=== PATIENT | male | born 1995 | race Hispanic/Latino ===

== ENCOUNTER 2016-05-15 00:42 | Emergency (ER) | payer OTHER ==
--- NOTE | 2016-05-15 02:42 | EDDOCDS ---
Physician Documentation [facility] Name: Augusto Marino Age: 20 yrs Sex: Male : 1995 Arrival Date: 05/15/2016 Time: 00:42 Bed 2 Private MD: Disposition: 05/15/16 01:54 Discharged to Home/Self Care. Impression: Alcohol abuse with intoxication. - Condition is Stable. - Medication Reconciliation, Local Pharmacy Hours form. - Follow up: Private Physician; When: Call to arrange an appointment; Reason: Recheck today's complaints. - Problem is new. - Symptoms have improved. Historical: - Allergies: no known allergies; - Home Meds: 1. Truvada Unknown oral Unknown once daily (Last dose: 05/14/2016) - PMHx: none; - PSHx: none; - Social history: Smoking status: Patient uses tobacco products, current some day smoker. No barriers to communication noted, The patient speaks fluent British. - Family history: Not pertinent. - : The pt / caregiver states he / she is not on anticoagulants. Home medication list is obtained from the patient, Unable to Verify Home Med List with the patient / caregiver. - Exposure Risk Screening:: None identified. Vital Signs: 05/15 00:48 BP 123 / 60; Pulse 59; Resp 18; Temp 96.9(TE); Pulse Ox 100% on R/A; Weight 81.65 kg / jose manuel 180.01 lbs (R); Height 5 ft. 7 in. (170.18 cm) (R); Pain 0/10; 01:00 BP 106 / 55 (auto/); ko2 02:41 BP 141 / 65; Pulse 93; Resp 18; Temp 96.4; Pulse Ox 100% ; Pain 0/10; ko2 00:48 Body Mass Index 28.19 (81.65 kg, 170.18 cm) jose manuel MDM: 00:56 Accucheck ordered. cs11 01:13 Fingerstick Blood Sugar Ordered. EDMS 02:26 Financial registration complete. pm4 02:26 [facility] Payment Agreement was scanned into [employer] and attached to record. pm4 Point of Care Testing: Blood Glucose: 01:07 Blood Glucose: 83 mg/dL; ko2 Ranges: Signatures: Dispatcher [employer] EDEusebia Hammond RN RN jan Schiff, Craig, DO cs11 Lyudmila Pratt RN RN ko2 Evangelist Diamond, Reg Reg pm4 The chart was reviewed and I authenticate all verbal orders and agree with the evaluation and treatment provided.Attachments: : [facility] Payment Agreement pm4 MTDD
--- NOTE | 2016-05-15 02:42 | EDDOCDS ---
Nurse's Notes [facility] Name: Augusto Marino Age: 20 yrs Sex: Male : 1995 Arrival Date: 05/15/2016 Time: 00:42 Bed 2 Private MD: Diagnosis: Alcohol abuse with intoxication Presentation: 05/15 00:55 Presenting complaint: EMS states: they were called to residence for intoxicated person. alla pt admits to drinking bee and liquor since 6pm. per friend at bedside they became concerned when patient could not stay awake and was vomiting. friend states patient was not able to come down stairs unassisted and slid down the stairs. per EMS FSBS 106 and was given Zofran 4mg IV. Mental Health Triage Level: Not applicable. Adult Sepsis Screening: The patient does not have new or worsening altered mentation. Patient's respiratory rate is less than 22. Systolic blood pressure is greater than 100. Patient has a qSOFA score of 0- Negative Sepsis Screen. Suicide/Homicide risk assessment- the patient denies having any suicidal and/or homicidal ideations and does not present with any other emotional, behavioral or mental health complaints. Status: The patient is an active duty service plumber. Transition of care: patient was not received from another setting of care. 00:55 Acuity: STEVEN Level 3 apr 00:55 Method Of Arrival: Ambulance apr Triage Assessment: 01:06 General: Appears in no apparent distress, Behavior is cooperative, Smells of alcohol. apr Pain: Denies pain. HIV screening NA for this visit Offered previously. Historical: - Allergies: no known allergies; - Home Meds: 1. Truvada Unknown oral Unknown once daily (Last dose: 05/14/2016) - PMHx: none; - PSHx: none; - Social history: Smoking status: Patient uses tobacco products, current some day smoker. No barriers to communication noted, The patient speaks fluent Japanese. - Family history: Not pertinent. - : The pt / caregiver states he / she is not on anticoagulants. Home medication list is obtained from the patient, Unable to Verify Home Med List with the patient / caregiver. - Exposure Risk Screening:: None identified. Screenin:07 Screening information is obtained from the patient. Fall risk: No risks identified. ko2 Assistance ADL's: requires no assistance with activities of daily living. Abuse/DV Screen: The patient / caregiver reports he/she is: not in a situation that causes fear, pain or injury. Nutritional screening: No deficits noted. Advance Directives: Currently, there is no health care proxy. There is no active DNR order. There is no living will. There is no Power of Piano Professor. home support is adequate. Assessment: 01:07 General: Appears in no apparent distress, comfortable, Behavior is cooperative. Pain: ko2 Denies pain. Neurological: Level of Consciousness is awake, alert. Respiratory: No deficits noted. Derm: Skin is normal. 02:38 General: Pt ambulated in hallway with no concerns. Pt awake, alert and oriented. . ko2 Vital Signs: 00:48 BP 123 / 60; Pulse 59; Resp 18; Temp 96.9(TE); Pulse Ox 100% on R/A; Weight 81.65 kg jose manuel (R); Height 5 ft. 7 in. (170.18 cm) (R); Pain 0/10; 01:00 BP 106 / 55 (auto/); ko2 02:41 BP 141 / 65; Pulse 93; Resp 18; Temp 96.4; Pulse Ox 100% ; Pain 0/10; ko2 00:48 Body Mass Index 28.19 (81.65 kg, 170.18 cm) jose manuel Vitals: 01:06 Log In Time N/A - ambulance arrival. apr ED Course: 00:43 Patient visited by Katelyn Watson, Broadcast Producer. ml3 00:43 Lyudmila Pratt,SEBASTIÁN is Primary Nurse. ml3 00:43 Patient moved to Waiting ml3 00:43 Patient moved to 2 ml3 00:48 Pt greeted and oriented to ED. Patient advised of names of staff involved in care, jose manuel location of call laboy, wait times and NPO status. Accompanied by Friend, Patient has correct armband on for positive identification. Placed in gown. Bed in low position. Call light in reach. Side rails up X2. Pulse ox on. NIBP on. 00:49 Patient visited by Joanna Quevedo PCA. jose manuel 00:56 Erik Flood DO is Attending Physician. cs11 00:56 Patient visited by Erik Flood DO. cs11 01:02 Triage Initiated apr 01:48 Patient visited by Lyudmila Pratt,SEBASTIÁN. ko2 02:26 [facility] Payment Agreement was scanned into [employer] and attached to record. pm4 02:28 Patient name changed from Augusto\S\\S\Ned\S\ to Augusto\S\ \S\Ned. EDMS 02:39 The patient / caregiver is instructed regarding the plan of care and ED course. ko2 02:39 No IV's were initiated during this patient's visit. No procedures done that require ko2 assistance. Point of Care Testing: Blood Glucose: 01:07 Blood Glucose: 83 mg/dL; ko2 Ranges: Order Results: Lab Order: Fingerstick Blood Sugar; SPEC'M 05/15/16 01:06 Test: BEDSIDE GLUCOSE; Value: 83; Range: 70-105; Units: MG/DL; Status: F Outcome: 01:54 Discharge ordered by Provider. cs11 02:40 Discharge Assessment: Patient awake, alert and oriented x 3. No cognitive and/or ko2 functional deficits noted. Patient verbalized understanding of disposition instructions. patient administered narcotics - no. The following High Risk Discharge criteria are identified: None. Discharged to home ambulatory, Pt discharged to SGT Edi and Warrant Officer Soto Neumann. Condition: stable. No special radiology studies were completed. Property sent home with patient. 02:42 Patient left the ED. ko2 Signatures: Dispatcher [employer] EDMS Eusebia Davis RN Katelyn Avila, Broadcast Producer Unit ml3 Joanna Quevedo, VENEREAL DISEASE CONTROL HEAD VENEREAL DISEASE CONTROL HEAD Erik Conde, DO DO cs11 Lyudmila Pratt,SEBASTIÁN RN quan2 Evangelist Diamond, Reg Reg pm4 MTDD
--- NOTE | 2016-05-17 03:43 | EDDOCDS ---
Physician Documentation [facility] Name: Augusto Marino Age: 20 yrs Sex: Male : 1995 Arrival Date: 05/15/2016 Time: 00:42 Bed 2 Private MD: Disposition: 05/15/16 01:54 Discharged to Home/Self Care. Impression: Alcohol abuse with intoxication. - Condition is Stable. - Medication Reconciliation, Local Pharmacy Hours form. - Follow up: Private Physician; When: Call to arrange an appointment; Reason: Recheck today's complaints. - Problem is new. - Symptoms have improved. Historical: - Allergies: no known allergies; - Home Meds: 1. Truvada Unknown oral Unknown once daily (Last dose: 05/14/2016) - PMHx: none; - PSHx: none; - Social history: Smoking status: Patient uses tobacco products, current some day smoker. No barriers to communication noted, The patient speaks fluent Jamaican. - Family history: Not pertinent. - : The pt / caregiver states he / she is not on anticoagulants. Home medication list is obtained from the patient, Unable to Verify Home Med List with the patient / caregiver. - Exposure Risk Screening:: None identified. Vital Signs: 05/15 00:48 BP 123 / 60; Pulse 59; Resp 18; Temp 96.9(TE); Pulse Ox 100% on R/A; Weight 81.65 kg / jose manuel 180.01 lbs (R); Height 5 ft. 7 in. (170.18 cm) (R); Pain 0/10; 01:00 BP 106 / 55 (auto/); ko2 02:41 BP 141 / 65; Pulse 93; Resp 18; Temp 96.4; Pulse Ox 100% ; Pain 0/10; ko2 00:48 Body Mass Index 28.19 (81.65 kg, 170.18 cm) jose manuel MDM: 00:56 Accucheck ordered. cs11 01:13 Fingerstick Blood Sugar Ordered. EDMS 02:26 Financial registration complete. pm4 02:26 [facility] Payment Agreement was scanned into [employer] and attached to record. pm4 14:28 T-Sheet-- Draft Copy was scanned into [employer] and attached to record. Point of Care Testing: Blood Glucose: 01:07 Blood Glucose: 83 mg/dL; ko2 Ranges: Signatures: Dispatcher [employer] EDEusebia Hammond, RN RN Orquidea Arrieta, Reg Reg gb Erik Flood DO DO cs11 Lyudmila Pratt RN RN ko2 Evangelist Diamond, Reg Reg pm4 The chart was reviewed and I authenticate all verbal orders and agree with the evaluation and treatment provided.Attachments: 02:26 [facility] Payment Agreement pm4 14:28 T-Sheet-- Draft Copy gb Chart Complete MTDD
--- NOTE | 2016-05-17 03:43 | EDDOCDS ---
Nurse's Notes [facility] Name: Augusto Marino Age: 20 yrs Sex: Male : 1995 Arrival Date: 05/15/2016 Time: 00:42 Bed 2 Private MD: Diagnosis: Alcohol abuse with intoxication Presentation: 05/15 00:55 Presenting complaint: EMS states: they were called to residence for intoxicated person. alla pt admits to drinking bee and liquor since 6pm. per friend at bedside they became concerned when patient could not stay awake and was vomiting. friend states patient was not able to come down stairs unassisted and slid down the stairs. per EMS FSBS 106 and was given Zofran 4mg IV. Mental Health Triage Level: Not applicable. Adult Sepsis Screening: The patient does not have new or worsening altered mentation. Patient's respiratory rate is less than 22. Systolic blood pressure is greater than 100. Patient has a qSOFA score of 0- Negative Sepsis Screen. Suicide/Homicide risk assessment- the patient denies having any suicidal and/or homicidal ideations and does not present with any other emotional, behavioral or mental health complaints. Status: The patient is an active duty service department manager. Transition of care: patient was not received from another setting of care. 00:55 Acuity: STEVEN Level 3 apr 00:55 Method Of Arrival: Ambulance apr Triage Assessment: 01:06 General: Appears in no apparent distress, Behavior is cooperative, Smells of alcohol. apr Pain: Denies pain. HIV screening NA for this visit Offered previously. Historical: - Allergies: no known allergies; - Home Meds: 1. Truvada Unknown oral Unknown once daily (Last dose: 05/14/2016) - PMHx: none; - PSHx: none; - Social history: Smoking status: Patient uses tobacco products, current some day smoker. No barriers to communication noted, The patient speaks fluent Tamazight. - Family history: Not pertinent. - : The pt / caregiver states he / she is not on anticoagulants. Home medication list is obtained from the patient, Unable to Verify Home Med List with the patient / caregiver. - Exposure Risk Screening:: None identified. Screenin:07 Screening information is obtained from the patient. Fall risk: No risks identified. ko2 Assistance ADL's: requires no assistance with activities of daily living. Abuse/DV Screen: The patient / caregiver reports he/she is: not in a situation that causes fear, pain or injury. Nutritional screening: No deficits noted. Advance Directives: Currently, there is no health care proxy. There is no active DNR order. There is no living will. There is no Power of Dev Technical Mgr. home support is adequate. Assessment: 01:07 General: Appears in no apparent distress, comfortable, Behavior is cooperative. Pain: ko2 Denies pain. Neurological: Level of Consciousness is awake, alert. Respiratory: No deficits noted. Derm: Skin is normal. 02:38 General: Pt ambulated in hallway with no concerns. Pt awake, alert and oriented. . ko2 Vital Signs: 00:48 BP 123 / 60; Pulse 59; Resp 18; Temp 96.9(TE); Pulse Ox 100% on R/A; Weight 81.65 kg jose manuel (R); Height 5 ft. 7 in. (170.18 cm) (R); Pain 0/10; 01:00 BP 106 / 55 (auto/); ko2 02:41 BP 141 / 65; Pulse 93; Resp 18; Temp 96.4; Pulse Ox 100% ; Pain 0/10; ko2 00:48 Body Mass Index 28.19 (81.65 kg, 170.18 cm) jose manuel Vitals: 01:06 Log In Time N/A - ambulance arrival. apr ED Course: 00:43 Patient visited by Katelyn Watson, Locomotive Crane Engineer. ml3 00:43 Lyudmila Pratt,SEBASTIÁN is Primary Nurse. ml3 00:43 Patient moved to Waiting ml3 00:43 Patient moved to 2 ml3 00:48 Pt greeted and oriented to ED. Patient advised of names of staff involved in care, jose manuel location of call laboy, wait times and NPO status. Accompanied by Friend, Patient has correct armband on for positive identification. Placed in gown. Bed in low position. Call light in reach. Side rails up X2. Pulse ox on. NIBP on. 00:49 Patient visited by Joanna Quevedo PCA. jose manuel 00:56 Erik Flood DO is Attending Physician. cs11 00:56 Patient visited by Erik Flood DO. cs11 01:02 Triage Initiated apr 01:48 Patient visited by Lyudmila Pratt RN. ko2 02:26 [facility] Payment Agreement was scanned into [employer] and attached to record. pm4 02:28 Patient name changed from Augusto\S\\S\Ned\S\ to Augusto\S\ \S\Ned. EDMS 02:39 The patient / caregiver is instructed regarding the plan of care and ED course. ko2 02:39 No IV's were initiated during this patient's visit. No procedures done that require ko2 assistance. 14:28 T-Sheet-- Draft Copy was scanned into [employer] and attached to record. Point of Care Testing: Blood Glucose: 01:07 Blood Glucose: 83 mg/dL; ko2 Ranges: Order Results: Lab Order: Fingerstick Blood Sugar; SPEC'M 05/15/16 01:06 Test: BEDSIDE GLUCOSE; Value: 83; Range: 70-105; Units: MG/DL; Status: F Outcome: 01:54 Discharge ordered by Provider. cs11 02:40 Discharge Assessment: Patient awake, alert and oriented x 3. No cognitive and/or ko2 functional deficits noted. Patient verbalized understanding of disposition instructions. patient administered narcotics - no. The following High Risk Discharge criteria are identified: None. Discharged to home ambulatory, Pt discharged to SGT Edi and Warrant Officer Soto Neumann. Condition: stable. No special radiology studies were completed. Property sent home with patient. 02:42 Patient left the ED. ko2 Signatures: Dispatcher [employer] EDMS Eusebia Davis RN RN jan Barnhardt, Gloria, Reg Reg gb Katelyn Watson, Locomotive Crane Engineer Unit ml3 Joanna Quevedo, MANAGER PERFORMANCE MANAGER PERFORMANCE Erik Conde DO DO cs11 Lyudmila Pratt,SEBASTIÁN glass2 Evangelist Diamond, Reg Reg pm4 Chart Complete MTDD
--- NOTE | 2016-05-17 03:43 | EDDOCDS ---
Physician Documentation [facility] Name: Augusto Marino Age: 20 yrs Sex: Male : 1995 Arrival Date: 05/15/2016 Time: 00:42 Bed 2 Private MD: Disposition: 05/15/16 01:54 Discharged to Home/Self Care. Impression: Alcohol abuse with intoxication. - Condition is Stable. - Medication Reconciliation, Local Pharmacy Hours form. - Follow up: Private Physician; When: Call to arrange an appointment; Reason: Recheck today's complaints. - Problem is new. - Symptoms have improved. Historical: - Allergies: no known allergies; - Home Meds: 1. Truvada Unknown oral Unknown once daily (Last dose: 05/14/2016) - PMHx: none; - PSHx: none; - Social history: Smoking status: Patient uses tobacco products, current some day smoker. No barriers to communication noted, The patient speaks fluent Tristanian. - Family history: Not pertinent. - : The pt / caregiver states he / she is not on anticoagulants. Home medication list is obtained from the patient, Unable to Verify Home Med List with the patient / caregiver. - Exposure Risk Screening:: None identified. Vital Signs: 05/15 00:48 BP 123 / 60; Pulse 59; Resp 18; Temp 96.9(TE); Pulse Ox 100% on R/A; Weight 81.65 kg / jose manuel 180.01 lbs (R); Height 5 ft. 7 in. (170.18 cm) (R); Pain 0/10; 01:00 BP 106 / 55 (auto/); ko2 02:41 BP 141 / 65; Pulse 93; Resp 18; Temp 96.4; Pulse Ox 100% ; Pain 0/10; ko2 00:48 Body Mass Index 28.19 (81.65 kg, 170.18 cm) jose manuel MDM: 00:56 Accucheck ordered. cs11 01:13 Fingerstick Blood Sugar Ordered. EDMS 02:26 Financial registration complete. pm4 02:26 [facility] Payment Agreement was scanned into [employer] and attached to record. pm4 14:28 T-Sheet-- Draft Copy was scanned into [employer] and attached to record. Point of Care Testing: Blood Glucose: 01:07 Blood Glucose: 83 mg/dL; ko2 Ranges: Signatures: Dispatcher [employer] EDEusebia Hammond, RN RN Orquidea Arrieta, Reg Reg gb Erik Flodo DO DO cs11 Lyudmila Pratt RN RN ko2 Evangelist Diamond, Reg Reg pm4 The chart was reviewed and I authenticate all verbal orders and agree with the evaluation and treatment provided.Attachments: 02:26 [facility] Payment Agreement pm4 14:28 T-Sheet-- Draft Copy gb Chart Complete MTDD
== END 2016-05-15 02:42 | disposition home or self-care (01) ==
LOC: M ED 00:42
DX: F10.120 Alcohol abuse with intoxication, uncomplicated (principal); F17.200 Nicotine dependence, unspecified, uncomplicated; Z79.899 Other long term (current) drug therapy